=== PATIENT | female | born 1940 | race Caucasian/White ===

== ENCOUNTER → 2018-03-17 09:34 | Outpatient (CLI) | payer MEDICARE, OTHER ==
[2012-02-21 14:30] VITALS: BMI 24.0
== END | disposition home or self-care (01) ==
LOC: D.MRI 09:34
DX: M79.602 Pain in left arm (principal)

== ENCOUNTER 2018-05-25 12:39 | Observation (INO) | payer MEDICARE, OTHER ==
[~2018-05-25] VITALS: Ht 165.1 cm; Wt 65.9 kg
[2018-05-25] MEDS ORDERED: HEALTHYLAX17 GM PO (12:49)
[2018-05-25] MEDS ORDERED: MECLIZINE HCL25 MG PO (12:50)
[2018-05-25] MEDS ORDERED: TALWIN NX1 TAB PO (12:50)
[2018-05-25 13:29] LABS: BASOPHILS 0.4 % (0-2); EOSINOPHILS 2.4 % (0-7); HEMATOCRIT 37.5 % (36.0-48.0); HEMOGLOBIN 12.3 g/dL (12-16); LYMPHOCYTES 22.5 % (15-50); MCH 32.5 pg (26.0-34.0); MCHC 32.8 g/dL (31.0-37.0); MCV 99.2 fL (80.0-100.0); MEAN PLATELET VOLUME 9.5 fL (7.4-10.4); MONOCYTES 7.5 % (2-11); NEUTROPHILS 67.2 % (40-80); RBC 3.78 10x6/uL (4.00-5.40); RDW 13.7 % (11.5-14.5); WBC 5.5 10x3/uL (4.8-10.8)
[2018-05-25 13:31] LABS: PLATELET COUNT 229 10x3/uL (130-400)
[2018-05-25 13:44] LABS: ALBUMIN 3.5 g/dL (3.4-5.0); ANION GAP 12.7 mmol/L (8-16); BILIRUBIN - TOTAL 0.16 mg/dL (0.2-1.3); CALCIUM 8.9 mg/dL (8.5-10.1); CARBON DIOXIDE 28.1 mmol/L (21.0-32.0); CREATININE - SERUM 0.9 mg/dL (0.6-1.3); POTASSIUM - SERUM 3.8 mmol/L (3.5-5.1); PROTEIN - SERUM 6.8 g/dL (6.4-8.2)
[2018-05-25 13:44] LABS: APPEARANCE CLEAR (CLEAR); BILIRUBIN NEGATIVE (NEGATIVE); COLOR YELLOW (YELLOW); GLUCOSE NEGATIVE (NEGATIVE); KETONE NEGATIVE (NEGATIVE); NITRITE NEGATIVE (NEGATIVE); PROTEIN NEGATIVE (NEGATIVE); SPECIFIC GRAVITY 1.015 (1.005-1.020); UROBILINOGEN NORMAL (NORMAL); WHITE CELLS - URINE RARE /hpf (0-5)
[2018-05-25 13:45] LABS: RED CELLS - URINE RARE /hpf (0-5)
[2018-05-25 15:47] VITALS: BP 146/72
[2018-05-25] MEDS ORDERED: ZOCOR20 MG PO (17:06)
[2018-05-25] MEDS ORDERED: ESGIC TABLET1 TAB PO (17:07)
[2018-05-25] MEDS ORDERED: HYDROCODON-ACE1 EAC7 PO (17:10)
[2018-05-25 17:24] VITALS: BP 156/80; BMI 24.1
[2018-05-25 17:53] VITALS: Ht 165.1 cm; Wt 65.9 kg
[2018-05-25 18:21] VITALS: BP 156/80
[2018-05-25 20:00] VITALS: BP 153/93
[2018-05-26 01:00] VITALS: BP 114/50
[2018-05-26 05:24] VITALS: BP 136/89
[2018-05-26 06:26] LABS: BASOPHILS 0.5 % (0-2); HEMOGLOBIN 11.4 g/dL (12-16); IMMATURE GRANULOCYTES 0.3 % (0-5); LYMPHOCYTES 34.4 % (15-50); MCH 32.9 pg (26.0-34.0); MCHC 33.5 g/dL (31.0-37.0); MEAN PLATELET VOLUME 9.6 fL (7.4-10.4); MONOCYTES 9.8 % (2-11); PLATELET COUNT 214 10x3/uL (130-400); RBC 3.47 10x6/uL (4.00-5.40); RDW 13.7 % (11.5-14.5)
[2018-05-26 06:48] LABS: ALBUMIN 3.2 g/dL (3.4-5.0); ANION GAP 10.4 mmol/L (8-16); BILIRUBIN - TOTAL 0.33 mg/dL (0.2-1.3); CALCIUM 8.6 mg/dL (8.5-10.1); CARBON DIOXIDE 27.1 mmol/L (21.0-32.0); CREATININE - SERUM 0.9 mg/dL (0.6-1.3); POTASSIUM - SERUM 3.5 mmol/L (3.5-5.1); PROTEIN - SERUM 6.2 g/dL (6.4-8.2)
[2018-05-26 08:24] VITALS: BP 133/68
== END 2018-05-26 10:04 | disposition home or self-care (01) ==
LOC: D.ER 12:39 → D.MS 16:03 → D.EDHOLD 16:03 → OBSVTIME 16:07 → D.MS 16:15
PROVIDERS: Family Medicine
DX: K59.09 Other constipation (principal); K21.9 Gastro-esophageal reflux disease without esophagitis; G43.909 Migraine, unspecified, not intractable, without status migrainosus; Z87.891 Personal history of nicotine dependence